=== PATIENT | female | born 1965 | race African-American/Black ===

== ENCOUNTER 2016-10-18 19:02 | Emergency (ER) | payer BC, OTHER ==
[~2016-10-18] VITALS: Ht 167.6 cm; Wt 101.5 kg
[2016-10-18 19:07] VITALS: Ht 167.6 cm; Wt 101.5 kg
--- NOTE | 2016-10-18 20:27 | ERD ---
ER Documentation Chief Complaint Date/Time DATE: 10/18/16 TIME: 20:26 Chief Complaint bilateral leg swelling x 1 day, denies pain HPI 51-year-old female otherwise healthy comes to the emergency room with bilateral lower extremity swelling 1 day. The patient states that she has had frothing of the urine, swelling to her both of her hands but mostly to her lower extremities. She experience right upper chest pain yesterday that felt sharp like a spasm that resolved after about 5 minutes. She denies any fevers, chills , cough or shortness of breath. She has noticed also swelling to the right side of her neck. ROS All systems reviewed and are negative except as per history of present illness. Medications Home Meds Active Scripts Furosemide* (Lasix*) 20 Mg Tablet, 20 MG PO DAILY, #5 TAB Prov:BRI LAST PA-C 10/18/16 Allergies Allergies: Coded Allergies: No Known Drug Allergy (Verified Allergy, Unknown, 12/17/08) PMhx/Soc History of Surgery: Yes (HYSTERECTOMY) Anesthesia Reaction: No Hx Neurological Disorder: No Hx Respiratory Disorders: No Hx Cardiac Disorders: No Hx Psychiatric Problems: No Hx Miscellaneous Medical Probl: No Hx Alcohol Use: No Hx Substance Use: No Hx Tobacco Use: No Smoking Status: Never smoker Physical Exam Vitals Vital Signs Date Time Temp Pulse Resp B/P Pulse Ox O2 Delivery O2 Flow Rate FiO2 10/18/16 22:25 98.0 90 18 133/82 100 Room Air 10/18/16 19:07 98.2 97 20 137/83 100 Physical Exam General: Well-developed, well-nourished. The patient appears in no acute distress. HEENT: Head is normocephalic, atraumatic. No scleral icterus. Pupils are equal , round, and reactive. Oral mucous membranes are moist. No pharyngeal erythema. Neck: Supple. Nontender. Swelling lateral on the right side of the thyroid. Lungs: Clear to auscultation. Normal air movement. Heart: Regular rate and rhythm. S1 and S2 are normal. No murmurs, gallops, or rubs. Abdomen: Soft, nontender, nondistended. Bowel sounds are normoactive. Extremities: Bilateral lower extremity pitting edema. Dorsalis pedis pulses 2+ bilaterally. No pain with palpation. Neurologic: Alert and oriented 3. No focal deficits. Skin: Normal turgor. No rash or lesions. Result Diagram: 10/18/16204410/18/162044 Results 24 hrs Laboratory Tests Test 10/18/16 20:22 10/18/16 20:45 Urine Bilirubin NEGATIVE Urine Clarity CLEAR Urine Color LT. YELLOW Urine Glucose NEGATIVE% Urine Hemoglobin 1+ Urine Ketones NEGATIVE Urine Leukocyte Esterase NEGATIVE Urine Microscopic RBC 0-2/HPF Urine Microscopic WBC 2-5/HPF Urine Nitrite NEGATIVE Urine Specific [place] 1.015 Urine Squamous Epithelial Cells FEW Urine Total Protein 4+ Urine Urobilinogen 0.2 E.U./dL Urine pH 6.0 Alanine Aminotransferase (ALT/SGPT) 49IU/L Albumin 2.6g/dl Albumin/Globulin Ratio 0.74 Alkaline Phosphatase 90IU/L Anion Gap 11 Aspartate Amino Transf (AST/SGOT) 39IU/L B-Type Natriuretic Peptide 36PG/ML Basophils # 0.210^3/ul Basophils % 1.5% Blood Urea Nitrogen 9mg/dl Calcium Level 8.8mg/dl Carbon Dioxide Level 27mmol/L Chloride Level 100mmol/L Creatinine 0.81mg/dl Direct Bilirubin 0.00mg/dl Eosinophils # 0.210^3/ul Eosinophils % 1.9% Free Thyroxine 0.92ng/dl Globulin 3.50g/dl Glucose Level 100mg/dl Hematocrit 46.2% Hemoglobin 15.6g/dl Indirect Bilirubin 0.2mg/dl Lymphocytes # 3.510^3/ul Lymphocytes % 35.2% Mean Corpuscular Hemoglobin 30.0pg Mean Corpuscular Hemoglobin Concent 33.8g/dl Mean Corpuscular Volume 88.7fl Mean Platelet Volume 8.3fl Monocytes # 0.710^3/ul Monocytes % 6.5% Neutrophils # 5.510^3/ul Neutrophils % 54.9% Nucleated Red Blood Cells # 0.210^3/ul Nucleated Red Blood Cells % 2.0/100WBC Platelet Count 95884^3/UL Potassium Level 3.8mmol/L Red Blood Count 5.2110^6/ul Red Cell Distribution Width 12.3% Sodium Level 134mmol/L Thyroid Stimulating Hormone (TSH) 1.600MIU/L Total Bilirubin 0.2mg/dl Total Protein 6.1g/dl Troponin I < 0.012ng/ml White Blood Count 10.110^3/ul 12-lead EKG(interpreted by supervising physician): Dr Verma Rate/Rhythm: [Normal Sinus Rhythm], rate of 83 QRS, ST, T-waves: [No changes consistent w/ acute ischemia], no intervals, no dysrhythmias, no ectopy Impression: [No evidence of ischemia or arrhythmia] PROCEDURE: XR Chest. CLINICAL INDICATION: Bilateral leg swelling. TECHNIQUE: 2 frontal views of the chest. COMPARISON: None FINDINGS: The heart and mediastinum are within normal limits. The lungs are clear. There is no pleural effusion or pneumothorax. IMPRESSION: No acute disease. RPTAT: [facility] Physician Jaspal Date Time Electronically viewed and signed by Physician Jaspal on 10/18/2016 20:56 Procedures/MDM 51-year-old female comes with peripheral edema for the past 1 day. She is no evidence of CHF, BNP was normal, troponin was negative, electrolyte is normal kidney function is unremarkable. I discussed the findings my attending physician, Dr. Ariza, who advised patient will be discharged home, she will be given Lasix for short course for 5 days. She has been asked to follow-up with her primary care doctor. I doubt DVT, infectious origin, MUKUND. Departure Diagnosis: Primary Impression: Peripheral edema Condition: Good BRI LAST PA-C Oct 18, 2016 20:27
[2016-10-18 20:56] LABS: ADD UMIC YES; URINE BILIRUBIN (Dip) NEGATIVE (NEGATIVE); URINE BLOOD (Dip) 1+ (NEGATIVE); URINE COLOR LT. YELLOW (YELLOW); URINE GLUCOSE (Dip) NEGATIVE (NEGATIVE); URINE KETONES (Dip) NEGATIVE (NEGATIVE); URINE LEUKOCYTE ESTERASE (Dip) NEGATIVE (NEGATIVE); URINE NITRITE (Dip) NEGATIVE (NEGATIVE); URINE TOTAL PROTEIN (Dip) 4+ (NEGATIVE); URINE UROBILINOGEN (Dip) 0.2 E.U./dL (0.1-1.0)
--- NOTE | 2016-10-18 20:57 | RADRPT ---
PROCEDURE: XR Chest. CLINICAL INDICATION: Bilateral leg swelling. TECHNIQUE: 2 frontal views of the chest. COMPARISON: None FINDINGS: The heart and mediastinum are within normal limits. The lungs are clear. There is no pleural effusion or pneumothorax. IMPRESSION: No acute disease. RPTAT: [facility] Physician Jaspal Date Time Electronically viewed and signed by Fabrizio Booker Physician on 10/18/2016 20:56 RS/
[2016-10-18 21:02] LABS: BASOPHIL # 0.2 10^3/ul (0.0-0.1); BASOPHILS % 1.5 % (0.0-2.0); EOSINOPHILS # 0.2 10^3/ul (0.0-0.5); EOSINOPHILS % 1.9 % (0.0-7.0); HEMATOCRIT 46.2 % (37.0-47.0); HEMOGLOBIN 15.6 g/dl (12.0-16.0); LYMPHOCYTES # 3.5 10^3/ul (0.8-2.9); LYMPHOCYTES % 35.2 % (15.0-51.0); MEAN CORPUSCULAR HGB CONC 33.8 g/dl (32.0-37.0); MEAN CORPUSCULAR VOLUME 88.7 fl (82.0-101.0); MEAN PLATELET VOLUME 8.3 fl (7.4-10.4); MONOCYTE # 0.7 10^3/ul (0.3-0.9); MONOCYTES % 6.5 % (0.0-11.0); NEUTROPHIL # 5.5 10^3/ul (1.6-7.5); NEUTROPHILS % 54.9 % (39.0-77.0); PLATELET COUNT 364 10^3/UL (140-440); RED BLOOD COUNT 5.21 10^6/ul (4.20-5.40); RED CELL DISTRIBUTION WIDTH 12.3 % (11.5-14.5); UNCORRECTED WBC 10.1 10^3/ul (4.8-10.8); WHITE BLOOD COUNT 10.1 10^3/ul (4.8-10.8)
[2016-10-18 21:03] LABS: CONDITION 1; NUCLEATED RED BLOOD CELLS # 0.2 10^3/ul (0.0-0.0)
[2016-10-18 21:08] LABS: SQUAMOUS EPITHELIAL CELL,UR FEW; URINE RBCS 0-2 /HPF (0)
[2016-10-18 21:12] LABS: ALBUMIN 2.6 g/dl (3.3-4.9)
[2016-10-18 21:13] LABS: POTASSIUM 3.8 mmol/L (3.5-5.1)
[2016-10-18 21:15] LABS: ALBUMIN/GLOBULIN RATIO 0.74; BILIRUBIN,INDIRECT 0.2 mg/dl (0-1.1); BILIRUBIN,TOTAL 0.2 mg/dl (0.2-1.3); CREATININE 0.81 mg/dl (0.44-1.00); TOTAL PROTEIN 6.1 g/dl (6.1-8.1)
[2016-10-18 21:16] LABS: CALCIUM 8.8 mg/dl (8.4-10.2)
[2016-10-18] MEDS ORDERED: FURO-110 PO (22:06)
[2016-10-18 22:25] VITALS: BP 133/82; PULSE 90; RESP 18; TEMP 98
== END 2016-10-18 22:27 | disposition home or self-care (01) ==
LOC: FTE 19:02
DX: R60.0 Localized edema (principal)
CPT/HCPCS: 36415; 71010; 80053; 81001; 81003; 83880; 84439; 84443; 84484; 85025; 93005

== ENCOUNTER 2018-09-13 17:03 | Emergency (ER) | payer OTHER ==
[~2018-09-13] VITALS: Ht 175.3 cm; Wt 99.1 kg
[~2018-09-13 17:03] MED LIST: FURO-110 PO
[2018-09-13 17:17] VITALS: BP 139/71; PULSE 99; RESP 18; Ht 175.3 cm; Wt 99.1 kg
--- NOTE | 2018-09-14 02:21 | ERD ---
ER Documentation Chief Complaint Chief Complaint R foot pain after stepping on foot wrong 3 wks ago HPI 52-year-old female presents for right foot pain times 1 day. She states that she was getting off the couch and apparently stepped wrong and had foot pain 3 weeks ago.. The pain initially improved however she states that the dog hit her foot today and she noted that the pain returned. Pain is noted to be 10 out of 10 with movement. She is able to bear weight however she states that there is pain. She denies fevers or chills. ROS All systems reviewed and are negative except as per history of present illness. Medications Home Meds Active Scripts Furosemide* (Lasix*) 20 Mg Tablet, 20 MG PO DAILY, #5 TAB Prov:BRI LAST PA-C 10/18/16 Allergies Allergies: Coded Allergies: No Known Drug Allergy (Verified Allergy, Unknown, 12/17/08) PMhx/Soc History of Surgery: Yes (HYSTERECTOMY) Anesthesia Reaction: No Hx Neurological Disorder: No Hx Respiratory Disorders: No Hx Cardiac Disorders: No Hx Psychiatric Problems: No Hx Miscellaneous Medical Probl: No Hx Alcohol Use: No Hx Substance Use: No Hx Tobacco Use: No Smoking Status: Never smoker Physical Exam Vitals Vital Signs Date Temp Pulse Resp B/P (MAP) Pulse Ox O2 O2 Flow FiO2 Time Delivery Rate 09/13/18 98.5 99 18 139/71 97 17:17 (93) Physical Exam Const: No acute distress Resp: Clear to auscultation bilaterally Cardio: Regular rate and rhythm, no murmurs, right foot dorsalis pedis pulse intact Skin: No petechiae or rashes Ext: Right foot tenderness to palpation diffusely. There is no swelling no charley, no erythema. No pain to palpation over the ankle. Neur: Awake and alert, right foot sensation intact Psych: Normal Mood and Affect Procedures/MDM Medical Decision Making: Differential diagnosis includes but not limited to right foot fracture, dislocation, sprain. Patient appeared well on physical examination. Examination of the right foot revealed diffuse tenderness to palpation. There is no swelling or erythema noted. Right foot x-ray showed Mild degenerative joint disease at the first MTP joint with adjacent soft tissue swelling. Patient advised regarding finding. She is advised to use ice and elevate the foot as needed for pain. Patient also advised regarding taking OTC pain meds. Advised to follow with primary care physician for possible further imaging if her pain continues. Patient advised to follow up with PCP in 1-2 days. Patient advised to return to ED for new or worsening symptoms. Patient stable on discharge from the ED. Disclaimer: Inadvertent spelling and grammatical errors are likely due to EHR/dictation software use and do not reflect on the overall quality of patient care. Also, please note that the electronic time recorded on this note does not necessarily reflect the actual time of the patient encounter. Departure Diagnosis: Primary Impression: Injury of foot Condition: Fair Patient Instructions: Contusion, Foot Referrals: RUPERTO GOMEZ MD (PCP) Additional Instructions: Call your primary care doctor TOMORROW for an appointment during the next 1-2 days.See the doctor sooner or return here if your condition worsens before your appointment time. SABINE SALDAÑA DO Sep 14, 2018 02:21
== END 2018-09-13 21:01 | disposition home or self-care (01) ==
LOC: FTE 17:03
DX: S99.921A Unspecified injury of right foot, initial encounter (principal); X58.XXXA Exposure to other specified factors, initial encounter; Y92.9 Unspecified place or not applicable
CPT/HCPCS: 73630